=== PATIENT | male | born 1995 | race Caucasian/White ===

== ENCOUNTER 2023-05-18 10:39 | Emergency (ER) | payer BC, OTHER ==
[~2023-05-18] VITALS: Ht 162.6 cm; Wt 67.6 kg
[2023-05-18 13:45] VITALS: BP 128/75; TEMP 98.7; O2SAT 100
== END 2023-05-18 14:10 | disposition home or self-care (01) ==
LOC: ER 10:40
DX: S93.402A Sprain of unspecified ligament of left ankle, initial encounter (principal); X50.1XXA Overexertion from prolonged static or awkward postures, initial encounter; Y93.66 Activity, soccer; Y92.89 Other specified places as the place of occurrence of the external cause; Y99.8 Other external cause status
CPT/HCPCS: 73610-TC